=== PATIENT | male | born 1960 | race Caucasian/White ===

== ENCOUNTER 2021-08-11 16:05 | Inpatient (IN) | payer OTHER, SELFPAY ==
[2021-08-11] VITALS (10 sets, daily range): BP systolic 126–145; BP diastolic 84–125; PULSE 75–97; RESP 12–24; TEMP 36.4–36.9; O2SAT 98–100
--- NOTE | ~2021-08-11 | CT_ITS ---
EXAMINATION: CT cervical spine wo con EXAM DATE: 08/11/2021 16:38 INDICATION: fall, collapse and parking lot. TECHNIQUE: Spiral CT of the cervical spine was performed without contrast. Axial images were reviewe d. Coronal and sagittal reformatted images cervical spine were also reviewed. The dose-length produc t (DLP) for this examination was 538.86 mGy-cm. The exposure was tailored according to patient size (auto mA exposure control), and iterative reconstruction (ASIR) was used as additional dose reduction technique. There is no prior study for comparison. FINDINGS: There is no evidence of acute cervical fracture. The odontoid process is intact. Pre-dens space is normal. Prevertebral soft tissue is normal. There are no soft tissue abnormalities identi fied. There is no disc space widening or traumatic vertebral body subluxation suspected. Congenital ly fused C7-T1 vertebral bodies and partially fused facet joints. There is mild to moderate arthropat hy. A detailed level by level evaluation of spondylosis can be added as addendum if requested. IMPRESSION: 1. No acute cervical fracture. Reviewed, dictated and finalized at location G.
--- NOTE | ~2021-08-11 | CT_ITS ---
EXAMINATION: CTA brain carotid EXAM DATE: 08/11/2021 16:40 INDICATION: Fall, aphasia and confusion. TECHNIQUE: Noncontrast head CT. Spiral CTA of the carotid arteries was performed with intravenous i njection 100 cc of Omnipaque 350. Axial, coronal, sagittal reformatted images reviewed. Additional r eformatted images created on dedicated 3-D workstation. NASCET comparable standard used to assess th e degree of arterial stenosis. Spiral CT angiogram cerebral arteries performed with the same intrave nous injection of contrast. Source images of the brain CTA transferred to dedicated workstation for 3 -D rotational image creation. Coronal, sagittal maximum intensity pixel images also reviewed. The d ose-length product (DLP) for this examination was 1839.29 mGy-cm. The exposure was tailored accordi ng to patient size, and iterative reconstruction (ASIR) was used as additional dose reduction techniq ue. There is no prior study for comparison. FINDINGS: There is mild bilateral carotid bulb arteriosclerosis with 0% stenosis bilaterally. The lef t vertebral artery is dominant. Bilateral posterior communicating artery dominant posterior cerebral arteries. There is no carotid or vertebral basilar arterial dissection or fibromuscular dysplasia. T here are no cerebral artery aneurysms. There is a left M2 branch which appears to slightly dilated and then truncated, could indicate acute thrombosed branch. This would would explain the more prominent cortical vascularity, left reperfusion . The sagittal, transverse and sigmoid sinuses enhance normally, no venous sinus thrombosis. Internal cerebral veins also enhance normally. There is no acute intraparenchymal hemorrhage. No evidence of intraparenchymal brain mass lesion. T here is no mass effect or midline shift. There is no obstructive hydrocephalus suspected. There are no extra-axial collections. IMPRESSION: 1. Findings suspicious for acutely thrombosed left M2 branch. No loss of harrison-white cortical differ entiation at this time. No hemorrhage. 2. Bilateral carotid 0% stenosis. As per stroke protocol occult results, spoke to Dr. Trey Lainez MD at 5:05 p.m. 08/11/2021 Reviewed, dictated and finalized at location G. IMPRESSION: 1. Findings suspicious for acutely thrombosed left M2 branch. No loss of harrison -white cortical differentiation at this time. No hemorrhage. 2. Bilateral carotid 0% stenosis. As per stroke protocol occult results, spoke to Dr. Trey Lainez MD at 5:05 p.m. 08/11/2021
--- NOTE | ~2021-08-11 | XR_ITS ---
XR chest 1V portable DATE: 08/11/2021 16:37 INDICATION: Fall. Found diaphoretic, nonverbal. TECHNIQUE: Portable upright AP chest on 08/11/2021 at 1634 hours COMPARISON: 02/16/2017 two-view chest FINDINGS: Left-sided transvenous pacemaker device with right ventricular lead. Borderline heart size; heart size is not optimally evaluated on AP projection because of magnification. There is pulmonary vascular redistribution which might indicate mild pulmonary venous hypertension. 10 mm nodular density overlying lateral right lung base may be nipple shadow, similar nipple shadows overlying the chest on 02/16/2017. Possible mild infiltrate or atelectasis at the lung bases. The lungs otherwise appear clear. No pleur al effusion or pneumothorax is evident. IMPRESSION: Limited portable examination Possible mild infiltrate or atelectasis at the lung bases Borderline heart size; pulmonary vascular redistribution may indicate mild pulmonary venous hypertens ion. Clinical correlation is advised Reviewed, dictated and finalized at location A. IMPRESSION: Limited portable examination Possible mild infiltrate or atelectasis at the lung bases Borderline heart size; pulmonary vascular redistribution may indicate mild pulm onary venous hypertension. Clinical correlation is advised
--- NOTE | ~2021-08-11 | US_ITS ---
EXAMINATION: US carotid duplex BI DATE: 08/12/2021 15:54 INDICATION: Stroke. Carotid atherosclerosis. TECHNIQUE: Grayscale, color Doppler, and pulsed Doppler images of the cervical carotid arteries were obtained. The degree of vessel stenosis is placed in one of the following categories: normal, <50%, 5 0-69%, >=70% but less than near-occlusion, near-occlusion, or total occlusion. Note that percent sten osis relative to normal distal artery lumen diameter is indirectly measured from velocity measurement s as described by Eugene, et al. Radiology 2003; 229:340-346. COMPARISON: Carotid CT angiogram dated 08/11/2021 FINDINGS: RIGHT: The right common carotid artery (CCA) peak systolic velocity (PSV) is 86 cm/s. The right internal car otid artery (ICA) PSV is 85 cm/s. The right ICA end-diastolic velocity (EDV) is 22 cm/s. The right IC A/CCA PSV ratio is 1.0. Grayscale and color Doppler images yield an estimate of <50% diameter reducti on from plaque in the ICA. The external carotid artery (ECA) PSV is 125 cm/s. There is antegrade flow in the right vertebral artery. LEFT: The left CCA PSV is 82 cm/s. The left ICA PSV is 100 cm/s. The left ICA EDV is 33 cm/s. The left ICA/ CCA PSV ratio is 1.2. Grayscale and color Doppler images yield an estimate of <50% diameter reduction from plaque in the ICA. The ECA PSV is 90 cm/s. There is antegrade flow in the left vertebral artery . IMPRESSION: 1. <50% stenosis in the right internal carotid artery. 2. <50% stenosis in the left internal carotid artery. 3. Cardiac arrhythmia is present. Correlate with EKG. Reviewed, dictated and finalized at location A.
--- NOTE | 2021-08-11 16:11 | ECG_ITS ---
Measurements Intervals [place] Rate: 90 P: MT: 0 QRS: -43 QRSD: 165 T: 46 QT: 411 QTc: 504 Interpretive Statements ATRIAL FIBRILLATION LEFT AXIS DEVIATION LEFT BUNDLE BRANCH BLOCK BASELINE ARTIFACT- I, II, AVR, V6 ABNORMAL ECG Electronically Signed On 08-11-2021 18:57:08 CDT by Kai Alcantar D.O.
[2021-08-11 16:32] LABS: Basophils Percent Auto 0.2 % (0.2-1.2); Eosinophils Absolute Auto 0.1 K/mm3 (0-0.3); Eosinophils Percent Auto 0.7 % (0-4.4); Hemoglobin 16.9 g/dL (14.0-18.0); Immature Granulocyte Absolute 0.03 K/mm3 (0.00-0.031); Immature Granulocyte Percent A 0.4 % (0-0.5); Lymphocytes Absolute Auto 1.28 K/mm3 (0.9-3.2); Lymphocytes Percent Auto 15.4 % (18.3-44.2); Mean Corpuscular Hemoglobin 34.5 pg (26-34); Mean Corpuscular Volume 95.9 fl (80-100); Mean Platelet Volume 9.3 fl (7.4-10.4); Monocytes Absolute Auto 0.4 K/mm3 (0.1-0.6); Monocytes Percent Auto 5.3 % (2.6-8.5); Neutrophils Absolute Auto 6.5 K/mm3 (1.3-6.7); Platelet Count Result 238 k/mm3 (150-375); Red Cell Distribution Width 12.1 % (11.5-14.5); White Blood Count 8.3 K/mm3 (4.5-10.0)
--- NOTE | 2021-08-11 16:48 | ED.AMS ---
HPI - Altered Mental Status General Chief Complaint: Suspected CVA Stated Complaint: ams Time Seen by Provider: 08/11/21 16:15 Source: EMS Mode of arrival: EMS Limitations: altered mental status and other (Mute) History of Present Illness HPI narrative: 61-year-old with a history of atrial fibrillation on Eliquis, hypertension, hyperlipidemia was brought brought in from work with altered mental status unable to talk. As per the EMS patient was found in front of the car with altered mental status about 1455 upon EMS arrival patient was was still found to be very confused and was unable to talk with giving thumbs up and thumbs down. Patient upon arrival to the ED is wide awake and alert but was unable to talk. He denied any trauma or headache. Patient had no previous history of strokes. I got part of the history from his patient states that he follows at the [facility] for atrial fibrillation and is scheduled for 2D echo next week but no history of any CVA in the past. Patient denied any chest pain or shortness of breath. Patient after coming back from the CAT scan after 5 to 10 minutes he is able to talk in full sentences he tells me that he has been taking warfarin for last 4 days as he ran out of his Eliquis as he gets his supplies from the [place]. complaint: altered mental status Onset (ago): hour(s) (1) Timing confirmed by: other (EMS) Associated symptoms: denies other symptoms Related Data Allergies Allergy/AdvReac Type Severity Reaction Status Date / Time No Known Allergies Allergy Verified 08/11/21 16:46 Review of Systems Review of Systems: All systems reviewed & are unremarkable except as noted in HPI and below Constitutional: Constitutional: Reports no additional constitutional complaints Eyes: Eyes: Reports no additional eye complaints ENT: Reports system reviewed and no additional complaints, except as documented Cardiovascular: Cardiovascular: Reports no additional cardiovascular complaints Respiratory: Respiratory: Reports no additional respiratory complaints Gastrointestinal: Gastrointestinal: Reports no additional gastrointestinal complaints Musculoskeletal: Musculoskeletal: Reports no additional musculoskeletal complaints Neurologic: Reports as per HPI Psychiatric: Psychiatric: Reports no additional psychiatric complaints Exam Narrative: GENERAL: Well-appearing, well-nourished, and in no acute distress, mute and confused HEAD: Normocephalic, atraumatic. EYES: PERRLA and EOMI. ENT: Nares clear, no rhinorrhea or epistaxis. Mucous membranes moist.mild facial droop on the right NECK: Supple. CHEST: Clear to auscultation. No respiratory distress. HEART: Irregular . ABDOMEN: Soft, nontender, nondistended, normal active bowel sounds. EXTREMITIES: Normal range of motion. No edema. SKIN: Warm, dry, no rash. NEURO: No focal deficits. Alert and oriented x3. initillay mute and is abble to talk please look into NIH scale PSYCH: Normal mood and affect. Course Course Emergency Course: Patient upon arrival was mute with settings to CAT scan and a CT of the head. Which showed M2 thrombus. I discussed with the neurology fellow at [facility] Dr. River recommended to transfer as the symptoms resolved no acute intervention is needed ,i did call [facility] as well spoke to Dr Hancock Neurology recommended to admit and do stroke work up here , Discussed with Dr. Boles will see the pt in consult discussed with Tania bernal to admit the pt. Vital Signs Vital signs: Vital Signs Temperature 36.4 C 08/11/21 16:07 Pulse Rate 87 08/11/21 16:07 Respiratory Rate 16 08/11/21 16:07 Blood Pressure 131/109 H 08/11/21 16:07 Pulse Oximetry 99 08/11/21 16:07 Temperature 36.4 C 08/11/21 16:07 Pulse Rate 93 08/11/21 18:00 Respiratory Rate 24 H 08/11/21 17:09 Blood Pressure 144/93 H 08/11/21 18:00 Pulse Oximetry 99 08/11/21 17:09 MDM - Altered Mental Status Differential Diagnosis
[2021-08-11 16:49] LABS: INR 1.4; Prothrombin Time 16.7 Seconds (11.1-14.7)
[2021-08-11 16:50] LABS: Partial Thromboplastin Time 25.4 SECONDS (22.3-36.8)
--- NOTE | 2021-08-11 17:02 | PC.NURSE ---
Pt states he did not take eliquis today
[2021-08-11 17:03] LABS: Alanine Aminotransferase 30 U/L (4-50); Albumin Level 4.7 g/dL (3.5-5.1); Alkaline Phosphatase 67 U/L (38-126); Anion Gap 9 mmol/L (8-16); Aspartate Amino Transferase 35 U/L (17-59); Bilirubin,Total 0.7 mg/dL (0.2-1.3); Blood Urea Nitrogen 15 mg/dL (9-20); Calcium 9.1 mg/dL (8.4-10.2); Carbon Dioxide 24 mmol/L (22-30); Chloride 107 mmol/L (98-107); Estimated CRCL calculation 98 ml/min; Estimated Glomerular Filt Rate > 60; Glucose 144 mg/dL (65-110); Potassium 4.3 mmol/L (3.4-5.0); Sodium 140 mmol/L (137-145)
[2021-08-11 17:23] LABS: Ethanol < 10 mg/dL (<10)
--- NOTE | 2021-08-11 19:08 | PC.NURSE ---
EKG completed prior
--- NOTE | 2021-08-11 20:54 | ADMGEN ---
This patient, Abdelrahman Wolfe, was admitted to 2 Medical Room 241-. Patient/family oriented to hospital policies and general routines including ID bracelet, bed and alarms, visiting hours, pain management, procedures, bathroom and other care routines, personal items, smoking policy, room service/diet, and visiting hours. Information on how to activate the Rapid Response Team has been discussed. Patient/Family are encouraged to report perceived risks to care and to ask questions if they do not understand what they are told or what they should do.
--- NOTE | 2021-08-11 21:12 | PM.IMHP ---
H&P: HPI History of Present Illness Date/Time: 08/11/21 21:12This is a 61-year-old male patient who has a history of atrial fibrillation, hypertension and hyperlipidemia. The patient typically goes to the [place]. the patient tells me that he had ran out of [employer] for his AFib and was taking his Coumadin over the last 4 days. The patient stated that he was on his 1st day of work and for got the address and was having difficulty communicating. The patient was found to be in front of his car and having difficulty communicating. He was communicating by thumbs-up her thumbs down. He appeared to be confused at the time. His was called and she came to evaluate the patient. 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 The patient is aware that he is having difficulty speaking. He knows what he wants to say but cannot express himself the way wants to becomes frustrated at times. His was at the bedside earlier but is no longer at his bedside. Head and neck CTA was read as findings suspicious for acutely thrombosed left M2 branch. No loss of harrison-white cortical differential at this time no hemorrhage bilateral carotid [address] of the neck was read as no acute cervical fracture. Chest x-ray was read as limited portable examination. Possible mild infiltrate or atelectasis at the lung bases. Borderline heart size pulmonary vascular redistribution may indicate mild pulmonary venous hypertension. ER provider noted that the patient was speaking in full sentences in that he notified [facility] as well as [facility] it was recommended that the patient stay here since his symptoms have resolved according to the ER doctor. The ER physician notified the neurologist here who agreed to accept the patient as a consult. However the patient is able to answer some questions but he still has expressive aphasia. He currently is not without symptoms. The patient is being admitted to inpatient services on the date of service of 08/11/2021. Chief Complaint: Expressive aphasia Review of Systems Review of Systems: All systems reviewed & are unremarkable except as noted in HPI and below Constitutional: Constitutional: Reports as per HPI and Reports no additional constitutional complaints Eyes: Eyes: Reports as per HPI and Reports no additional eye complaints ENT: Reports system reviewed and no additional complaints, except as documented and Reports Normal hearing present Cardiovascular: Cardiovascular: Reports no additional cardiovascular complaints Respiratory: Respiratory: Reports no additional respiratory complaints and Reports no additional respiratory complaints Gastrointestinal: Gastrointestinal: Reports as per HPI and Reports no additional gastrointestinal complaints Musculoskeletal: Musculoskeletal: Reports no additional musculoskeletal complaints Integumentary/Breasts: Skin/Breast: Reports system reviewed and no additional complaints, except as docu and Reports as per HPI Neurologic: Reports system reviewed and no additional complaints, except as documented, Reports as per HPI and Reports Normal hearing present Psychiatric: Psychiatric: Reports no additional psychiatric complaints and Reports as per HPI Endocrine: Endocrine: Reports no additional endocrine complaints Hematologic/Lymphatic: Hematologic/Lymphatic: Reports no additional hematologic/lymphatic complaints Allergic/Immunologic: Allergic/Immunologic: Reports no additional allergic/immunologic complaints PMFSH Past Medical History Medical History (Updated 08/11/21 @ 21:18 by Tania Harp NP) Atrial fibrillation Hyperlipidemia Hypertension Surgical History Surgical History (Updated 08/11/21 @ 21:18 by Tania Harp NP) AICD (automatic cardioverter/defibrillator) present patient stated that it has malfunctioned Family History Family History (Updated 08/11/21 @ 21:19 by Tania Harp NP) Unknown Family history unknown Social History Social
[2021-08-11] MEDS: APIXABAN 5 MG TABLET PO (21:14)
[2021-08-11] MEDS: FAMOTIDINE 20 MG/2 ML VIAL IV PUSH (21:14)
[2021-08-11] MEDS: SODIUM CHLORIDE 0.9% IV 1,000 ML 100 ML IV CONT (21:15)
[2021-08-11 21:37] LABS: Troponin I < 0.012 ng/mL (0.000-0.034)
[2021-08-12] VITALS (7 sets, daily range): BP systolic 145–173; BP diastolic 84–96; PULSE 67–98; RESP 18–21; TEMP 36.4–37.1; O2SAT 98–100
[2021-08-12 01:17] LABS: Troponin I < 0.012 ng/mL (0.000-0.034)
[2021-08-12 05:38] LABS: Basophils Percent Auto 0.2 % (0.2-1.2); Eosinophils Absolute Auto 0.1 K/mm3 (0-0.3); Eosinophils Percent Auto 0.8 % (0-4.4); Hematocrit 46.6 % (42.0-52.0); Hemoglobin 16.6 g/dL (14.0-18.0); Immature Granulocyte Absolute 0.05 K/mm3 (0.00-0.031); Immature Granulocyte Percent A 0.4 % (0-0.5); Lymphocytes Absolute Auto 1.38 K/mm3 (0.9-3.2); Lymphocytes Percent Auto 12.3 % (18.3-44.2); Mean Corpuscular HGB Conc 35.6 g/dl (32-36); Mean Corpuscular Hemoglobin 34.8 pg (26-34); Mean Corpuscular Volume 97.7 fl (80-100); Mean Platelet Volume 9.9 fl (7.4-10.4); Monocytes Absolute Auto 0.7 K/mm3 (0.1-0.6); Monocytes Percent Auto 6.2 % (2.6-8.5); Neutrophils Percent Auto 80.1 % (45.5-73.1); Platelet Count Result 208 k/mm3 (150-375); Red Blood Count 4.77 M/mm3 (4.6-6.20); Red Cell Distribution Width 12.3 % (11.5-14.5); White Blood Count 11.2 K/mm3 (4.5-10.0)
[2021-08-12 05:48] LABS: Alanine Aminotransferase 25 U/L (4-50); Albumin Level 4.3 g/dL (3.5-5.1); Alkaline Phosphatase 65 U/L (38-126); Anion Gap 10 mmol/L (8-16); Aspartate Amino Transferase 32 U/L (17-59); Bilirubin,Total 1.3 mg/dL (0.2-1.3); Blood Urea Nitrogen 13 mg/dL (9-20); Calcium 8.9 mg/dL (8.4-10.2); Carbon Dioxide 24 mmol/L (22-30); Chloride 106 mmol/L (98-107); Estimated CRCL calculation 98 ml/min; Estimated Glomerular Filt Rate > 60; Glucose 114 mg/dL (65-110); Lactate Dehydrogenase 436 U/L (313-618); Magnesium 1.7 mg/dL (1.6-2.3); Potassium 4.2 mmol/L (3.4-5.0); Sodium 140 mmol/L (137-145)
--- NOTE | 2021-08-12 06:00 | ECG_ITS ---
Measurements Intervals [place] Rate: 84 P: 86 DC: 188 QRS: -70 QRSD: 133 T: 45 QT: 394 QTc: 466 Interpretive Statements SINUS RHYTHM RIGHT BUNDLE BRANCH BLOCK LEFT ANTERIOR FASCICULAR BLOCK BASELINE ARTIFACT- II, III, AVR ABNORMAL ECG Electronically Signed On 08-12-2021 11:05:20 CDT by Kai Alcantar D.O.
--- NOTE | 2021-08-12 06:00 | ECHO_ITS ---
Patient Info Name: Abdelrahman Wolfe Age: 61 years : 1960 Gender: Male Ht: 77 in Wt: 253 lbs BSA: 2.52 m2 HR: 90 bpm BP: 173 / 92 mmHg Technical Quality: Good Exam Date: 08/12/2021 11:10 AM Exam Location: [facility] Patient Status: Inpatient Admit Date: 08/11/2021 Staff Ordering Physician: Trey Lainez MD Finance Business Partner: Lainey Pena RDCS Attending Provider: Benjamin Iyer DO Exam Type: CA echo doppler color flow Study Info Indications - CVA Complete two-dimensional, color flow and Doppler transthoracic echocardiogram is performed. Summary 1. Complete two-dimensional, color flow and Doppler transthoracic echocardiogram is performed. 2. Left ventricular chamber dimension is normal. 3. Left ventricular systolic function is normal, estimated at 55-60%. 4. There is mildly increased left ventricular wall thickness. 5. Left ventricular septal wall motion is abnormal with septal motion related to bundle branch block. 6. The left ventricular diastolic function is abnormal. 7. E/e' 9 is minimally elevated. 8. Linear artifact in right ventricle suggestive of catheter(s), pacemaker lead(s), or ICD lead(s). 9. Left atrial chamber dimension is severely enlarged. 10. Right atrial chamber dimension is severely enlarged. 11. Linear artifact in the right atrium suggestive of catheter(s), pacemaker lead(s), or ICD lead(s). 12. There is mild aortic valve sclerosis. 13. There is mild mitral valve regurgitation. 14. There is trace tricuspid valve regurgitation. 15. Mild pulmonary hypertension, estimated pulmonary arterial systolic pressure is 47 mmHg. Left Ventricle E/e' 9 is minimally elevated. Left ventricular chamber dimension is normal. Left ventricular systolic function is normal, estimated at 55-60%. There is mildly increased left ventricular wall thickness. Left ventricular septal wall motion is abnormal with septal motion related to bundle branch block. The left ventricular diastolic function is abnormal. Right Ventricle Linear artifact in right ventricle suggestive of catheter(s), pacemaker lead(s), or ICD lead(s). Right ventricular chamber dimension is normal. Right ventricular systolic function is normal. Left Atria Left atrial chamber dimension is severely enlarged. Right Atria Linear artifact in the right atrium suggestive of catheter(s), pacemaker lead(s), or ICD lead(s). Right atrial chamber dimension is severely enlarged. Aortic Valve The aortic valve is trileaflet. There is mild aortic valve sclerosis. There is no aortic valve stenosis. There is no aortic valve regurgitation. Pulmonic Valve There is no pulmonic regurgitation. Mitral Valve There is no mitral valve stenosis. There is mild mitral valve regurgitation. Tricuspid Valve There is trace tricuspid valve regurgitation. Mild pulmonary hypertension, estimated pulmonary arterial systolic pressure is 47 mmHg. Pericardium/Pleural There is no pericardial effusion. Inferior Vena Cava Normal inferior vena cava with >50% collapse upon inspiration consistent with normal right atrial pressure, 5 mmHg. Aorta The aortic root size at the sinus of Valsalva is normal. Left Ventricular Outflow Tract Name Value Normal LVOT 2D
[2021-08-12 07:10] LABS: Add Urine Microscopic? NO; Appearance Urine Clear (Clear); Bilirubin Urine Negative (Negative); Blood Urine Negative (Negative); Color Urine Yellow (Yellow); Glucose Urine UA Negative (Negative); Ketones Urine Negative (Negative); Leukocyte Esterase Ur Negative LEU/UL (Negative); Nitrate Urine Negative (Negative); Protein Urine Negative (Negative); Urobilinogen Urine Negative mg/dL (<2.0)
[2021-08-12 07:22] LABS: Amphetamine Screen Urine Negative (Negative); Barbiturate Screen Urine Negative (Negative); Benzodiazepines Screen Urine Positive (Negative); Cannabinoid Screen Urine Positive (Negative); Cocaine Screen Urine Negative (Negative); Methadone Screen Urine Negative (Negative); Opiate Screen Urine Negative (Negative); Phencyclidine Screen Urine Negative (Negative)
[2021-08-12 07:25] LABS: Specific Grav Ur 1.032 (1.001-1.035)
[2021-08-12] MEDS: SODIUM CHLORIDE 0.9% IV 1,000 ML 100 ML IV CONT ×2 (07:32→20:12)
[2021-08-12] MEDS: ATORVASTATIN 40 MG TABLET 80 MG PO (08:54)
[2021-08-12] MEDS: FAMOTIDINE 20 MG/2 ML VIAL IV PUSH ×2 (08:54→20:14)
[2021-08-12] MEDS: valACYclovir HCL 500 MG TABLET PO (08:54)
[2021-08-12] MEDS: APIXABAN 5 MG TABLET PO ×2 (08:54→20:14)
[2021-08-12] MEDS: lisinopriL 20 MG TABLET PO (08:54)
--- NOTE | 2021-08-12 09:30 | PM.IMPN ---
Progress Note: A&P Assessment and Plan (1) Acute CVA (cerebrovascular accident): Code(s): I63.9 - Cerebral infarction, unspecified Status: Acute Assessment and Plan: taking Coumadin for 4 days as he had ran out of his Eliquis ST/PT/OT Continue with his Eliquis and his atorvastatin Neurology has been consulted Plan for MRI (2) Hypertension: Code(s): I10 - Essential (primary) hypertension Status: Chronic Assessment and Plan: continue home lisinopril Monitor (3) Hyperlipidemia: Code(s): E78.5 - Hyperlipidemia, unspecified Status: Chronic Assessment and Plan: Continue atorvastatin (4) Atrial fibrillation: Qualifiers: Atrial fibrillation type: longstanding persistent Qualified Code(s): I48.11 - Longstanding persistent atrial fibrillation Code(s): I48.91 - Unspecified atrial fibrillation Status: Chronic Assessment and Plan: Continue with this Eliquis Subjective Date/time seen: 08/12/21 09:30 Interval history: pt seen and evaluated; ST at the bedside; labs, VS and diagnostic reports reviewed; no acute events overnight Review of Systems Review of Systems: All systems reviewed & are unremarkable except as noted in HPI and below Exam Const: General: no acute distress, alert and awake Orientation/consciousness: patient oriented x3 HENMT: Head: normocephalic and atraumatic Ears: hearing grossly normal bilaterally and external ears normal Face and sinus: face symmetric Mouth: Yes Normal oral and palatal mucosa present Eyes: EOM: EOMs intact bilaterally Neck: Neck: full ROM, trachea midline and no JVD Resp: Effort & Inspection: normal respiratory effort Auscultation: clear to auscultation bilaterally Cardio: Jugular venous distension: no JVD Rate: regular rate Rhythm: regular rhythm Heart sounds: S1 normal heart sound present and S2 normal heart sound present GI: Inspection: normal to inspection GI Palp: Yes Soft to palpation Percussion: Yes normal to percussion Auscultation: normal bowel sounds : General: Yes no CVA tenderness Back/Spine/Pelvis: Back: no CVA tenderness Skin: General skin exam: normal color Rashes: no rashes Neuro: General: patient oriented x3 Speech: Expressive aphasia present and Receptive aphasia present Extrem: General: full ROM and no clubbing, cyanosis or edema Psych: Appearance: grossly normal Affect: normal affect Judgement: Good judgement present (Psych) Objective Data Vital Signs Vital Signs: Vital Signs - 24 hr 08/11/21 16:07 08/11/21 16:45 08/11/21 16:47 Temperature 36.4 C Pulse Rate 87 97 Respiratory Rate 16 13 Blood Pressure 131/109 H 145/125 H Pulse Oximetry 99 98 08/11/21 17:09 08/11/21 18:00 08/11/21 19:07 Temperature Pulse Rate 93 93 87 Respiratory Rate 24 H 19 Blood Pressure 144/93 H 126/92 H Pulse Oximetry 99 100 08/11/21 20:14 08/11/21 20:15 08/11/21 20:32 Temperature Pulse Rate 75 77 Respiratory Rate 12 Blood Pressure 128/90 Pulse Oximetry 99 99 08/11/21 22:10 08/12/21 00:00 08/12/21 04:00 Temperature 36.9 C 36.7 C 36.4 C L Pulse Rate 94 89 89 Respiratory Rate 20 21 H 20 Blood Pressure 132/84 173/92 H 153/96 H Pulse Oximetry 98 100 99 08/12/21 08:00 08/12/21 09:05 Temperature 36.4 C L Pulse Rate 79 98 Respiratory Rate 20 Blood Pressure 150/87 H Pulse Oximetry 99 Intake/Output Intake/Output: Intake & Output 08/09/21 08/10/21 08/11/21 08/12/21 23:59 23:59 23:59 23:59 Intake Total 1960 Output Total 900 Balance 1060 Meds/Results Medications: Active Medications Generic Name Dose Route Start Last Admin Trade Name Freq PRN Reason Stop Dose Admin Acetaminophen 650 mg 08/11/21 18:07 Acetaminophen 325 Mg Tablet PO Q4H PRN Mild Pain (1-3) or Fever Alprazolam 1 mg 08/11/21 21:48 Alprazolam (*Crx) 0.5 Mg Tablet PO TID PRN Anxiety Apixaban 5 mg
--- NOTE | 2021-08-12 10:11 | WPDNEURCNPN ---
Assessment and Plan Additional Plan subsequent to the admission is evaluation up until now include the CT scan of the head which is negative psoas the chest x-ray and CT scan cervical spine initial head and neck CTA was suspicious for acutely thrombosed left M2 branch but with no loss of harrison and white cortical different Ca araujo and no hemorrhage and also without bilateral carotid stenosis. Considering the evaluation up until now he can be apixaban but he was supposed to take 5 mg b.i.d. as he took the Coumadin for 3 to 4 days when he ran out of her apixaban with blood might not be fully anticoagulated and he had TIA MRI will be obtained to rule out the possibility of any new stroke Consult date: 08/12/21 Time Seen: 09:45 HPI: Abdelrahman Wolfe is a 61 year old maleHas [facility] for the complaints of difficulties in communicating he was found to be in front of his car and having difficulties communicating actually was communicating by thumbs up and thumbs down and also appear to be confuse the was called to the scene and she came to evaluate 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 he knew what he wanted to say but he could not express himself he has ongoing history of atrial fibrillation with hypertension and hyperlipidemia and typically goes to the [facility] for the care but unfortunately ran out of Eliquis for his atrial fibrillation and was taking his Coumadin over the last 4 days and he was on his 1st day of work after the initial evaluation Sandra Mcmahon and brian were notified, as his symptoms had resolved he would did not need to be transferred and was admitted here for further care Review of Systems Review of Systems: All systems reviewed & are unremarkable except as noted in HPI and below PMFSH Past Medical History Medical History Atrial fibrillation Hyperlipidemia Hypertension Surgical History Surgical History AICD (automatic cardioverter/defibrillator) present patient stated that it has malfunctioned Family History Family History Unknown Family history unknown Social History Social History Social History: the patient is and does not have any children. 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 The patient is a full code The patient does not smoke cigarettes but occasionally smokes some marijuana. He denies any illicit drugs and occasionally uses alcohol. 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 Smoking status: Never smoker Alcohol intake: current Substance use: never Spiritual care concerns: No Meds Home Medications and Allergies Home Medications Medication Instructions Recorded Confirmed Type alprazolam [Xanax] 1 mg PO TID PRN 08/11/21 08/11/21 History apixaban [Eliquis] 5 mg BID 08/11/21 08/11/21 History atorvastatin 80 mg PO DAILY 08/11/21 08/11/21 History lisinopril 20 mg PO DAILY 08/11/21 08/11/21 History sildenafil 100 mg PO DAILY PRN 08/11/21 08/11/21 History valacyclovir 500 mg PO DAILY 08/11/21 08/11/21 History Allergies Allergy/AdvReac Type Severity Reaction Status Date / Time No Known Allergies Allergy Verified 08/11/21 16:46 Vital Signs Vital Signs - 24 hr 08/11/21 16:07 08/11/21 16:45 08/11/21 16:47 Temperature 36.4 C Pulse Rate 87 97 Respiratory Rate 16 13 Blood Pressure 131/109 H 145/125 H Pulse Oximetry 99 98 08/11/21 17:09 08/11/21 18:00 08/11/21 19:07 Temperature Pulse Rate 93 93 87 Respiratory Rate 24 H 19 Blood Pressure 144/93 H 126/92 H Pulse Oximetry 99 100 08/11/21 20:14 08/11/21 20:15 08/11/21 20:32 Temperature Pulse Rate 75 77 Respiratory Rate 12 Blood Pressure 128/90 Pulse Oximetry 9
[2021-08-13] VITALS (15 sets, daily range): BP systolic 138–190; BP diastolic 77–100; PULSE 61–150; RESP 14–20; TEMP 35.8–37.1; O2SAT 95–100
[2021-08-13] MEDS: SODIUM CHLORIDE 0.9% IV 1,000 ML 100 ML IV CONT (05:49)
[2021-08-13] MEDS: FAMOTIDINE 20 MG/2 ML VIAL IV PUSH ×2 (08:55→20:05)
[2021-08-13] MEDS: valACYclovir HCL 500 MG TABLET PO (08:55)
[2021-08-13] MEDS: ATORVASTATIN 40 MG TABLET 80 MG PO (08:55)
[2021-08-13] MEDS: APIXABAN 5 MG TABLET PO ×2 (08:55→20:06)
[2021-08-13] MEDS: lisinopriL 20 MG TABLET PO (08:55)
[2021-08-13] MEDS: hydrALAZINE HCL 20 MG/ML VIAL 10 MG IV PUSH (13:20)
[2021-08-13] MEDS: carvediloL 3.125 MG TABLET PO (14:14)
--- NOTE | 2021-08-13 14:56 | PM.IMPN ---
Progress Note: A&P Assessment and Plan (1) Acute CVA (cerebrovascular accident): Code(s): I63.9 - Cerebral infarction, unspecified Status: Acute Assessment and Plan: taking Coumadin for 4 days as he had ran out of his Eliquis ST/PT/OT Continue with his Eliquis and his atorvastatin Neurology has been consulted Plan for MRI (2) Hypertension: Code(s): I10 - Essential (primary) hypertension Status: Chronic Assessment and Plan: BP elevated Continue home lisinopril, will add coreg 3.125 PRN hydralazine Monitor (3) Hyperlipidemia: Code(s): E78.5 - Hyperlipidemia, unspecified Status: Chronic Assessment and Plan: Continue atorvastatin (4) Atrial fibrillation: Qualifiers: Atrial fibrillation type: longstanding persistent Qualified Code(s): I48.11 - Longstanding persistent atrial fibrillation Code(s): I48.91 - Unspecified atrial fibrillation Status: Chronic Assessment and Plan: Continue with this Eliquis Subjective Date/time seen: 08/13/21 14:56 Interval history: 08/12 pt seen and evaluated; ST at the bedside; labs, VS and diagnostic reports reviewed; no acute events overnight 08/13 pt seen and evaluated; BP elevated; denies any new complaints Review of Systems Review of Systems: All systems reviewed & are unremarkable except as noted in HPI and below Exam Const: General: no acute distress, alert and awake Orientation/consciousness: patient oriented x3 HENMT: Head: normocephalic and atraumatic Ears: hearing grossly normal bilaterally and external ears normal Face and sinus: face symmetric Mouth: Yes Normal oral and palatal mucosa present Eyes: EOM: EOMs intact bilaterally Neck: Neck: full ROM, trachea midline and no JVD Resp: Effort & Inspection: normal respiratory effort Auscultation: clear to auscultation bilaterally Cardio: Jugular venous distension: no JVD Rate: regular rate Rhythm: regular rhythm Heart sounds: S1 normal heart sound present and S2 normal heart sound present GI: Inspection: normal to inspection Auscultation: normal bowel sounds : General: Yes no CVA tenderness Back/Spine/Pelvis: Back: no CVA tenderness Skin: General skin exam: normal color Rashes: no rashes Neuro: General: patient oriented x3 Speech: Expressive aphasia present and Receptive aphasia present Extrem: General: full ROM and no clubbing, cyanosis or edema Psych: Appearance: grossly normal Affect: normal affect Judgement: Good judgement present (Psych) Objective Data Vital Signs Vital Signs: Vital Signs - 24 hr 08/12/21 16:00 08/12/21 20:00 08/13/21 00:00 Temperature 36.7 C 37.1 C 37.1 C Pulse Rate 83 75 81 Respiratory Rate 18 20 20 Blood Pressure 153/84 H 156/93 H 163/80 H Pulse Oximetry 98 98 96 08/13/21 04:00 08/13/21 07:59 08/13/21 08:00 Temperature 36.4 C 35.8 C L Pulse Rate 62 67 84 Respiratory Rate 20 20 Blood Pressure 138/77 140/95 H Pulse Oximetry 97 98 08/13/21 12:00 08/13/21 12:55 08/13/21 14:14 Temperature 36.7 C Pulse Rate 79 93 93 Respiratory Rate 14 Blood Pressure 190/100 H Pulse Oximetry 100 08/13/21 14:46 Temperature Pulse Rate Respiratory Rate Blood Pressure 167/89 H Pulse Oximetry Intake/Output Intake/Output: Intake & Output 08/10/21 08/11/21 08/12/21 08/13/21 23:59 23:59 23:59 23:59 Intake Total 3680 1430 Output Total 1750 300 Balance 1930 1130 Meds/Results Medications: Active Medications Generic Name Dose Route Start Last Admin Trade Name Freq PRN Reason Stop Dose Admin Acetaminophen 650 mg 08/11/21 18:07 Acetaminophen 325 Mg Tablet PO Q4H PRN Mild Pain (1-3) or Fever Alprazolam 1 mg 08/11/21 21:48 Alprazolam (*Crx) 0.5 Mg Tablet PO TID PRN Anxiety Apixaban 5 mg 08/11/21 21:00 08/13/21 08:55 Apixaban 5 Mg Tablet PO 5 mg Q12HR ANSHUL Administration Atorvastatin Calcium 80 mg
[2021-08-13] MEDS: ALPRAZolam (*CRX) 0.5 MG TABLET 1 MG PO (17:47)
--- NOTE | 2021-08-13 18:38 | PM.CNCAR ---
Assessment and Plan Assessment and plan (1) PAF (paroxysmal atrial fibrillation): Code(s): I48.0 - Paroxysmal atrial fibrillation Status: Acute Assessment and Plan: [id number] 3. On Eliquis. Having frequent bouts of rapid atrial fibrillation. Start Flecainide 50 mg q 12 hrs to attempt at rhythm control. (2) Hyperlipidemia: Code(s): E78.5 - Hyperlipidemia, unspecified Status: Chronic Assessment and Plan: On Atrovastatin. (3) Hypertension: Code(s): I10 - Essential (primary) hypertension Status: Chronic Assessment and Plan: High. Started on Coreg 3.125 mg daily. Increase Coreg 6.25 mg BID. On Lisinopril. Monitor BP. (4) Acute CVA (cerebrovascular accident): Code(s): I63.9 - Cerebral infarction, unspecified Status: Acute Assessment and Plan: Probably related to PAF and ran out of Eliquis. Neurology following. History of Present Illness History of Present Illness Consult date/time: 08/13/21 18:38 Reason for consult: Atrial fibrillation 61 yr old man admitted throught ER on 08/11/21 with stroke. He gets his health care at the [place], has a history of atrial fibrillation since diagnosed in [place], had pacemaker or ICD placed in [place] that is no longer functioning, hypertension, dyslipidemia. Reports on day of admission he had difficulty with word finding and that has improved but not resolved, and diagnosed with a stroke. He states he ran out of [employer] about 4 days prior and so he started to take Coumadin. He has rare palpitations only. He can walk miles without any problem. Denies chest pain, sob, orthopnea, PND, edema, dizziness. EKG: Atrial fibrillation at 90 bpm, LBBB. Telemetry shows frequent bouts of atrial fib with RVR up to 157 bpm. CTA head/neck: Acute thrombosis of left M2 branch. Echo shows EF 55-60%, mild LVH, severe biatrial enlargement, mild MR, RVSP 47 mmHg. Carotid duplex: <50% bilateral ICA stenosis. Reason For Visit: CVA Review of Systems Review of Systems: All systems reviewed & are unremarkable except as noted in HPI and below Constitutional: Constitutional: Reports as per HPI, Denies chills, Denies fatigue and Denies fever(s) Cardiovascular: Cardiovascular: Reports as per HPI, Denies chest pain, Reports irregular heart rhythm, Denies leg edema and Denies lightheadedness Respiratory: Respiratory: Reports as per HPI and Denies dyspnea Gastrointestinal: Gastrointestinal: Reports as per HPI and Denies abdominal pain Genitourinary: Genitourinary: Reports as per HPI and Denies dysuria Musculoskeletal: Musculoskeletal: Reports as per HPI Neurologic: Reports as per HPI, Denies dizziness and Denies syncope PMFSH Past Medical History Medical History Atrial fibrillation Hyperlipidemia Hypertension Surgical History Surgical History AICD (automatic cardioverter/defibrillator) present patient stated that it has malfunctioned Family History Family History Unknown Family history unknown Social History Social History Social History: the patient is and does not have any children. 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 The patient is a full code The patient does not smoke cigarettes but occasionally smokes some marijuana. He denies any illicit drugs and occasionally uses alcohol. 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 Smoking status: Never smoker Alcohol intake: current Substance use: never Spiritual care concerns: No Meds Home Medications and Allergies Home Medications Medication Instructions Recorded Confirmed Type alprazolam [Xanax] 1 mg PO TID PRN 08/11/21 08/11/21 History apixaban [Eliquis] 5 mg BID 08/11/21
[2021-08-13] MEDS: carvediloL 6.25 MG TABLET PO (20:05)
[2021-08-13] MEDS: FLECAINIDE ACETATE 50 MG TABLET PO (20:06)
[2021-08-14] VITALS (15 sets, daily range): BP systolic 141–184; BP diastolic 80–108; PULSE 50–101; RESP 16–20; TEMP 35.6–37.2; O2SAT 96–99
[2021-08-14] MEDS: FLECAINIDE ACETATE 50 MG TABLET PO (08:20)
[2021-08-14] MEDS: lisinopriL 20 MG TABLET PO ×2 (08:20→17:03)
[2021-08-14] MEDS: FAMOTIDINE 20 MG/2 ML VIAL IV PUSH ×2 (08:22→20:07)
[2021-08-14] MEDS: carvediloL 6.25 MG TABLET PO ×2 (08:22→20:07)
[2021-08-14] MEDS: ATORVASTATIN 40 MG TABLET 80 MG PO (08:22)
[2021-08-14] MEDS: valACYclovir HCL 500 MG TABLET PO (08:22)
[2021-08-14] MEDS: APIXABAN 5 MG TABLET PO ×2 (08:22→20:07)
--- NOTE | 2021-08-14 09:17 | PM.PNCARD ---
Progress Note: A&P Assessment and Plan (1) Hyperlipidemia: Code(s): E78.5 - Hyperlipidemia, unspecified Status: Chronic Assessment and Plan: On Atrovastatin. (2) Hypertension: Code(s): I10 - Essential (primary) hypertension Status: Chronic Assessment and Plan: High. On Coreg 6.25 mg BID. Increase Lisinopril 20 mg BID. Monitor BP. (3) Acute CVA (cerebrovascular accident): Code(s): I63.9 - Cerebral infarction, unspecified Status: Acute Assessment and Plan: Probably related to PAF and ran out of Eliquis. Neurology following. (4) Pacemaker: Code(s): Z95.0 - Presence of cardiac pacemaker Status: Acute Assessment and Plan: [employer] pacemaker implanted in [place] on 05/08/98. Has not been functional for many years without a generator change out. Will need to determine if a generator will be compatible with this device that can be changed or if he needs a whole new system including new leads. If generator is compatible he should have it changed here at [place] or with [place] in next 4 weeks given recent stroke. If new system needed, would refer him to EP for that. (5) Chronic atrial fibrillation: Code(s): I48.20 - Chronic atrial fibrillation, unspecified Status: Acute Assessment and Plan: [id number] 3. On Eliquis. 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 Started Flecainide 50 mg q 12 hrs to attempt at rhythm control. Given that he has chronic atrial fib with severe LAE, will discontinue Flecainide as this would not work. Will stop Flecainide. Subjective Date/time seen: 08/14/21 09:17 Denies chest pain or sob. Exam Const: General: cooperative, healthy appearing and comfortable Resp: Auscultation: clear to auscultation bilaterally, no crackles, no rales, no rhonchi and no wheezes Cardio: Jugular venous distension: no JVD Rate: regular rate Rhythm: abnormal rhythm Heart sounds: no murmurs Peripheral pulses: dorsalis pedis present GI: GI Palp: No abdominal tenderness and Yes Soft to palpation Neuro: General: oriented to person, oriented to place and oriented to time Extrem: Right lower extremity: no edema Left lower extremity: no edema Objective Data Vital Signs Vital Signs: Vital Signs - 24 hr 08/13/21 12:00 08/13/21 12:55 08/13/21 14:14 Temperature 98.1 F Pulse Rate 79 93 93 Respiratory Rate 14 Blood Pressure 190/100 H Pulse Oximetry 100 08/13/21 14:46 08/13/21 15:30 08/13/21 16:00 Temperature Pulse Rate 87 Respiratory Rate Blood Pressure 167/89 H 150/92 H Pulse Oximetry 08/13/21 16:20 08/13/21 16:56 08/13/21 20:00 Temperature 97.2 F L 97.0 F L Pulse Rate 67 150 H 68 Respiratory Rate 16 20 Blood Pressure 140/91 H 149/89 H Pulse Oximetry 95 98 08/13/21 20:05 08/13/21 20:06 08/14/21 00:00 Temperature 97.3 F L Pulse Rate 70 70 59 L Respiratory Rate 20 Blood Pressure 161/87 H Pulse Oximetry 98 08/14/21 04:00 08/14/21 08:10 08/14/21 08:20 Temperature 97.8 F 96.8 F L Pulse Rate 50 L 60 64 Respiratory Rate 20 16 Blood Pressure 141/91 H 156/80 H Pulse Oximetry 98 98 08/14/21 08:22 Temperature Pulse Rate 64 Respiratory Rate Blood Pressure Pulse Oximetry Intake/Output Intake/Output: Intake & Output 08/11/21 08/12/21 08/13/21 08/14/21 23:59 23:59 23:59 23:59 Intake Total 3680 2180 300 Output Total 1750 300 500 Balance 1930 1880 -200 Meds/Results Medications: Active Medications Generic Name Dose Route Start Last Admin Trade Name Freq PRN Reason Stop Dose Admin Acetaminophen 650 mg 08/11/21 18:07 Acetaminophen 325 Mg Tablet PO Q4H PRN Mild Pain (1-3) or Fever Alprazolam 1 mg 08/11/21 21:48 08/13/21 17:47 Alprazolam (*Crx) 0.5 Mg Tablet PO 1 mg TID PRN Administration Anxiety Apixaban 5 mg 08/11/21 21:00 08/14/21 08:22 Apixaban 5 Mg Tablet P
--- NOTE | 2021-08-14 10:40 | PM.IMPN ---
Progress Note: A&P Assessment and Plan (1) Acute CVA (cerebrovascular accident): Code(s): I63.9 - Cerebral infarction, unspecified Status: Acute Assessment and Plan: taking Coumadin for 4 days as he had ran out of his Eliquis ST/PT/OT Continue with his Eliquis and his atorvastatin Neurology has been consulted No MRI due to PM (2) Hypertension: Code(s): I10 - Essential (primary) hypertension Status: Chronic Assessment and Plan: BP elevated Home lisinopril increased to BID, coreg increased to 6.25 BID per cardiology PRN hydralazine Monitor (3) Hyperlipidemia: Code(s): E78.5 - Hyperlipidemia, unspecified Status: Chronic Assessment and Plan: Continue atorvastatin (4) Atrial fibrillation: Qualifiers: Atrial fibrillation type: longstanding persistent Qualified Code(s): I48.11 - Longstanding persistent atrial fibrillation Code(s): I48.91 - Unspecified atrial fibrillation Status: Chronic Assessment and Plan: Continue with this Eliquis yesterday tele showed frequent episodes of afib RVR up to 157 per cardiology Flecainide 50 mg q 12 hrs was initiated to attempt at rhythm control, then d/c'd due to severe LAE Coreg added (5) Pacemaker: Code(s): Z95.0 - Presence of cardiac pacemaker Status: Acute Assessment and Plan: Cardiology following Will need to be assessed for generator replacement and possible new system Recommends within 4 weeks Subjective Date/time seen: 08/14/21 10:40 Interval history: 08/12 pt seen and evaluated; ST at the bedside; labs, VS and diagnostic reports reviewed; no acute events overnight 08/13 pt seen and evaluated; BP elevated; denies any new complaints 08/14 pt noted with increased HR and diaphoresis, cardiology was consulted Review of Systems Review of Systems: All systems reviewed & are unremarkable except as noted in HPI and below Exam Const: General: no acute distress, alert and awake Orientation/consciousness: patient oriented x3 HENMT: Head: normocephalic and atraumatic Ears: hearing grossly normal bilaterally and external ears normal Face and sinus: face symmetric Mouth: Yes Normal oral and palatal mucosa present Eyes: EOM: EOMs intact bilaterally Neck: Neck: full ROM, trachea midline and no JVD Resp: Effort & Inspection: normal respiratory effort Auscultation: clear to auscultation bilaterally Cardio: Jugular venous distension: no JVD Rate: regular rate Rhythm: regular rhythm Heart sounds: S1 normal heart sound present and S2 normal heart sound present GI: Inspection: normal to inspection Auscultation: normal bowel sounds : General: Yes no CVA tenderness Back/Spine/Pelvis: Back: no CVA tenderness Skin: General skin exam: normal color Rashes: no rashes Neuro: General: patient oriented x3 Speech: Expressive aphasia present and Receptive aphasia present Extrem: General: full ROM and no clubbing, cyanosis or edema Psych: Appearance: grossly normal Affect: normal affect Judgement: Good judgement present (Psych) Objective Data Vital Signs Vital Signs: Vital Signs - 24 hr 08/13/21 12:00 08/13/21 12:55 08/13/21 14:14 Temperature 36.7 C Pulse Rate 79 93 93 Respiratory Rate 14 Blood Pressure 190/100 H Pulse Oximetry 100 08/13/21 14:46 08/13/21 15:30 08/13/21 16:00 Temperature Pulse Rate 87 Respiratory Rate Blood Pressure 167/89 H 150/92 H Pulse Oximetry 08/13/21 16:20 08/13/21 16:56 08/13/21 20:00 Temperature 36.2 C L 36.1 C L Pulse Rate 67 150 H 68 Respiratory Rate 16 20 Blood Pressure 140/91 H 149/89 H Pulse Oximetry 95 98 08/13/21 20:05 08/13/21 20:06 08/14/21 00:00 Temperature 36.3 C L Pulse Rate 70 70 59 L Respiratory Rate 20 Blood Pressure 161/87 H Pulse Oximetry 98 08/14/21 04:00 08/14/21 08:00 08/14/21 08:10 Temperature 36.6 C 36.0 C L Pulse Rate 50 L 58 L 60 Respiratory Ra
[2021-08-14] MEDS: hydrALAZINE HCL 20 MG/ML VIAL 10 MG IV PUSH (12:52)
[2021-08-15] VITALS: PULSE 93
[2021-08-15] MEDS: ALPRAZolam (*CRX) 0.5 MG TABLET 1 MG PO (00:26)
[2021-08-15 04:00] VITALS: BP 144/82; PULSE 67; PULSE 71; RESP 16; TEMP 36.4; O2SAT 99
--- NOTE | 2021-08-15 07:53 | PM.PNCARD ---
Progress Note: A&P Assessment and Plan (1) Hyperlipidemia: Code(s): E78.5 - Hyperlipidemia, unspecified Status: Chronic Assessment and Plan: On Atrovastatin. (2) Hypertension: Code(s): I10 - Essential (primary) hypertension Status: Chronic Assessment and Plan: Mildly high. On Coreg 6.25 mg BID, Lisinopril 20 mg BID. Start Amlodipine 5 mg daily. Monitor BP. (3) Acute CVA (cerebrovascular accident): Code(s): I63.9 - Cerebral infarction, unspecified Status: Acute Assessment and Plan: Probably related to PAF and ran out of Eliquis. Neurology following. (4) Pacemaker: Code(s): Z95.0 - Presence of cardiac pacemaker Status: Acute Assessment and Plan: [employer] pacemaker implanted in [facility] on 05/08/98. Has not been functional for many years without a generator change out. Will need to determine if a generator will be compatible with this device that can be changed or if he needs a whole new system including new leads. If generator is compatible he should have it changed here at [place] or with [place] in next 4 weeks given recent stroke. If new system needed, would refer him to EP for that. Spoke with [employer] headquarters and I was informed that [employer] does have generators that are compatible with lead connectors from [employer]. We need to confirm model types of lead connectors so that that type of generator would be available during change. There is a standard one and one that would need to be available if not standard which is harder to obtain at this time. Will need to track down model type from [employer] or if patient has more information on his device. (5) Chronic atrial fibrillation: Code(s): I48.20 - Chronic atrial fibrillation, unspecified Status: Acute Assessment and Plan: [id number] 3. On Eliquis. 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 He will need a pacemaker to help control HR. May d/c home from cardiology standpoint and f/u with me in 2 weeks. Subjective Date/time seen: 08/15/21 07:53 Denies chest pain or sob or palpitations. Exam Const: General: cooperative, healthy appearing and comfortable Resp: Auscultation: clear to auscultation bilaterally, no crackles, no rales, no rhonchi and no wheezes Cardio: Jugular venous distension: no JVD Rate: regular rate Rhythm: abnormal rhythm Heart sounds: no murmurs Peripheral pulses: dorsalis pedis present GI: GI Palp: No abdominal tenderness and Yes Soft to palpation Neuro: General: oriented to person, oriented to place and oriented to time Extrem: Right lower extremity: no edema Left lower extremity: no edema Objective Data Vital Signs Vital Signs: Vital Signs - 24 hr 08/14/21 08:00 08/14/21 08:10 08/14/21 08:20 Temperature 96.8 F L Pulse Rate 58 L 60 64 Respiratory Rate 16 Blood Pressure 156/80 H Pulse Oximetry 98 08/14/21 08:22 08/14/21 12:00 08/14/21 12:51 Temperature 96.1 F L Pulse Rate 64 69 71 Respiratory Rate 18 Blood Pressure 184/108 H Pulse Oximetry 96 08/14/21 14:02 08/14/21 15:47 08/14/21 16:00 Temperature Pulse Rate 91 Respiratory Rate Blood Pressure 151/80 H 147/92 H Pulse Oximetry 08/14/21 19:45 08/14/21 20:00 08/14/21 20:07 Temperature 98.9 F Pulse Rate 73 80 80 Respiratory Rate 18 18 Blood Pressure 150/100 H Pulse Oximetry 99 99 08/14/21 23:24 08/15/21 00:00 08/15/21 04:00 Temperature 99 F 97.5 F L Pulse Rate 93 93 71 Respiratory Rate 18 16 Blood Pressure 158/88 H 144/82 H Pulse Oximetry 98 99 Intake/Output Intake/Output: Intake & Output 08/12/21 08/13/21 08/14/21 08/15/21 23:59 23:59 23:59 23:59 Intake Total 3680 2180 2380 420 Output Total 1750 300 500 550 Balance 1930 1880 1880 -130 Meds/Results Medications: Active Medications Generic Name Dose Route Start Last Admin Trade Name Freq PRN Reason Stop Dose Adm
[2021-08-15 08:00] VITALS: BP 139/82; PULSE 74; PULSE 84; RESP 18; TEMP 36.4; O2SAT 97
[2021-08-15 08:42] VITALS: PULSE 72
[2021-08-15] MEDS: FAMOTIDINE 20 MG/2 ML VIAL IV PUSH (08:42)
[2021-08-15] MEDS: APIXABAN 5 MG TABLET PO (08:42)
[2021-08-15] MEDS: carvediloL 6.25 MG TABLET PO (08:42)
[2021-08-15] MEDS: valACYclovir HCL 500 MG TABLET PO (08:42)
[2021-08-15] MEDS: lisinopriL 20 MG TABLET PO (08:42)
[2021-08-15] MEDS: ATORVASTATIN 40 MG TABLET 80 MG PO (08:43)
[2021-08-15] MEDS: amLODIPine BESYLATE 5 MG TABLET PO (08:44)
[2021-08-15 08:51] VITALS: RESP 18; O2SAT 97
[2021-08-15 09:50] LABS: Hematocrit 49.3 % (42.0-52.0); Mean Corpuscular HGB Conc 36.5 g/dl (32-36); Mean Corpuscular Volume 95.7 fl (80-100); Mean Platelet Volume 9.2 fl (7.4-10.4); Platelet Count Result 238 k/mm3 (150-375); Red Blood Count 5.15 M/mm3 (4.6-6.20); Red Cell Distribution Width 12.1 % (11.5-14.5); White Blood Count 14.3 K/mm3 (4.5-10.0)
[2021-08-15 10:00] LABS: Anion Gap 7 mmol/L (8-16); Blood Urea Nitrogen 16 mg/dL (9-20); Calcium 9.6 mg/dL (8.4-10.2); Carbon Dioxide 25 mmol/L (22-30); Chloride 104 mmol/L (98-107); Estimated CRCL calculation 109 ml/min; Estimated Glomerular Filt Rate > 60; Glucose 111 mg/dL (65-110); Potassium 4.5 mmol/L (3.4-5.0); Sodium 136 mmol/L (137-145)
--- NOTE | 2021-08-15 10:13 | PM.DS ---
DS: Admitting Diagnosis Discharge Date 08/15/2021 Admitting Diagnosis Acute CVA DS: Discharge Diagnosis Discharge Diagnosis (1) Acute CVA (cerebrovascular accident): Code(s): I63.9 - Cerebral infarction, unspecified Status: Acute Assessment and Plan: taking Coumadin for 4 days as he had ran out of his Eliquis ST/PT/OT Continue with his Eliquis and his atorvastatin Neurology has been consulted No MRI due to PM (2) Hypertension: Code(s): I10 - Essential (primary) hypertension Status: Chronic Assessment and Plan: BP elevated Home lisinopril increased to BID, coreg increased to 6.25 BID per cardiology PRN hydralazine Monitor (3) Hyperlipidemia: Code(s): E78.5 - Hyperlipidemia, unspecified Status: Chronic Assessment and Plan: Continue atorvastatin (4) Atrial fibrillation: Qualifiers: Atrial fibrillation type: longstanding persistent Qualified Code(s): I48.11 - Longstanding persistent atrial fibrillation Code(s): I48.91 - Unspecified atrial fibrillation Status: Chronic Assessment and Plan: Continue with this Eliquis yesterday tele showed frequent episodes of afib RVR up to 157 per cardiology Flecainide 50 mg q 12 hrs was initiated to attempt at rhythm control, then d/c'd due to severe LAE Coreg added (5) Pacemaker: Code(s): Z95.0 - Presence of cardiac pacemaker Status: Acute Assessment and Plan: Cardiology following Will need to be assessed for generator replacement and possible new system Recommends within 4 weeks DS: Summary Hospital Course Hospital Course: This is a 61-year-old male patient who has a history of atrial fibrillation, hypertension and hyperlipidemia [facility] He reported that he had run out of Neuronex and was taking his Coumadin 4 days prior to admission. The patient was found to be in front of his car and having difficulty communicating. He was unable to speak and was communicating by using thumbs-up her thumbs down. He appeared to be confused at the time and his was called, who is a nursed, she then came to evaluate the patient. The patient is aware that he is having difficulty speaking. He knows what he wants to say but cannot express himself the way wants to becomes frustrated at times. ED evaluation included and revealed: CTA was read as findings suspicious for acutely thrombosed left M2 branch. No loss of harrison-white cortical differential at this time no hemorrhage bilateral carotid [address] of the neck was read as no acute cervical fracture. Chest x-ray was read as limited portable examination. Possible mild infiltrate or atelectasis at the lung bases. Borderline heart size pulmonary vascular redistribution may indicate mild pulmonary venous hypertension. ER provider noted that the patient was speaking in full sentences in that he notified [facility], as well as [facility] it was recommended that the patient stay here since his symptoms have resolved according to the ER doctor. The ER physician notified the neurologist here, who agreed to accept the patient as a consult. On initial exam, he was able to answer some questions but he still had expressive aphasia. The patient is being admitted to inpatient services on the date of service of 08/11/2021. Neurology was consulted, however the patient was unable to undergo MRI due to PPM. He was evaluated and treated by PT, OT and ST while inpatient. He will continue with Eliquis at discharge. On 08/13/2021 he was noted with frequent episodes of afib RVR up to 157 Coreg was initiated and cardiology was consulted. Flecainide 50 mg q 12 hrs was initiated to attempt at rhythm control, then d/c'd due to severe LAE. He was also found with pacemaker malfunction. Cardiology is recommending generator replacement and possible new system. He is hemodynamically stable and will be
--- NOTE | 2021-08-15 13:18 | PCSTNOTE ---
Discharged from Hospital'; recommend outpatient speech therapy to continue.
== END 2021-08-15 12:35 | disposition home or self-care (01) | DRG 65 ==
LOC: ANHED 18:10 → ANH2MED 08-12 02:56
PROVIDERS: Emergency Medicine; Nurse Practitioner; Admitting Provider Internal Medicine; Emergency Provider Family Medicine; Visit Provider Nurse Practitioner Adult Health
DX: I63.9 Cerebral infarction, unspecified (principal); I48.11 Longstanding persistent atrial fibrillation; R47.01 Aphasia; R29.706 NIHSS score 6; R29.701 NIHSS score 1; I10 Essential (primary) hypertension; E78.5 Hyperlipidemia, unspecified; Z79.01 Long term (current) use of anticoagulants; Z79.899 Other long term (current) drug therapy; Z95.0 Presence of cardiac pacemaker
CPT/HCPCS: 36415; 70496; 70498; 71045; 72125; 80048; 80053; 80307; 81003; 83615; 83735; 84443; 84484; 85025; 85027; 85610; 85730; 92507; 92523; 93005; 93306; 93880; 97161; 97165; 99285; A9270; J0360; J7030; Q9967